=== PATIENT | male | born 1985 | race Caucasian/White ===

== ENCOUNTER 2022-01-19 06:00 | Emergency (ER) | payer BC ==
[2022-01-19] MEDS ORDERED: methylPREDNISolone Sodium Succinate 125 MG/2 ML SDV IM ONE (06:15)
[2022-01-19] MEDS ORDERED: Ketorolac 30 MG/ML SDV IM ONE (06:15)
== END 2022-01-19 06:32 | disposition home or self-care (01) ==
LOC: VM.ED 06:00
DX: M75.51 Bursitis of right shoulder (principal); F17.210 Nicotine dependence, cigarettes, uncomplicated
CPT/HCPCS: 96372; 99283; J1885; J2930